=== PATIENT | male | born 1970 | race Caucasian/White ===

== ENCOUNTER 2019-09-18 07:40 | Day surgery (SDC) | payer OTHER, SELFPAY ==
[2019-09-17 07:41] VITALS: BMI 38.2
[2019-09-18] VITALS (13 sets, daily range): BP systolic 90–143; BP diastolic 64–94; PULSE 57–85; RESP 12–24; TEMP 36.4–36.8; O2SAT 93–98; BMI 38.2
[2019-09-18] MEDS: LACTATED RINGERS 1,000 ML 100 ML IV ×2 (08:18→10:36)
--- NOTE | 2019-09-18 08:30 | PM.PREOP ---
Pre-operative Note Interval Note History & Physical reviewed/Exam performed by Physician: Yes Changes to H&P: No
[2019-09-18] MEDS: CEFAZOLIN 2 GM/100 ML FROZ.PIGGY IV (08:50)
--- NOTE | 2019-09-18 09:20 | SUR.OPER ---
Supine on padded OR bed, head on pillow, safety belt at thigh, left arm and. Right arm secured on padded arm oard <90 degrees abduction. Legs uncrossed. Tape over blanket to secure lower legs.
--- NOTE | 2019-09-18 09:21 | SUR.OPER ---
pillow under knees
[2019-09-18] MEDS: BUPIVACAINE 0.25% (PF) VIAL 30 ML INJ (09:36)
[2019-09-18] MEDS: HYDROMORPHONE 2 MG INJ IV ×4 (11:20→11:35)
[2019-09-18] MEDS: fentaNYL 100 MCG/2 ML INJ IV ×2 (11:40→11:45)
[2019-09-18] MEDS: hydrOXYzine 50 MG/ML INJ 25 MG IM (11:41)
--- NOTE | 2019-09-18 13:15 | SUR.PHASEII ---
Addendum entered by Piter Georges R.N. 09/18/19 13:59: Pt dressed with only SBA done with her at her side. Pt was escorted via [facility] to ED entrance in stable condition. Addendum entered by Piter Georges R.N. 09/18/19 13:53: Pt readied for DC after continue use of IS. Maintained saturations between 91-96 on RA. Original Note: Pt held r/t having trouble maintaining saturations on room air. IS was provided, instruction on usage done by [facility]. Placed on 2L of and on continuous monitoring. DC pending until pt can maintain sats on room air.
--- NOTE | 2019-09-18 13:48 | PM.OP.1 ---
Operative Date/Time/Diagnoses Date of procedure: 09/18/19 Time of procedure: 13:49 Pre-op diagnosis: right inguinal hernia Post-op diagnosis: other (bilateral inguinal hernia) Procedure & Clinicians Procedure: Transabdominal preperitoneal repair of bilateral inguinal hernia with mesh Same procedure as scheduled: Yes Indications: 48-year-old female with right-sided symptomatic inguinal hernia presents for elective repair. Anesthesia Type: General Operative Notes Findings: Bilateral direct inguinal hernia defect. Estimated Blood Loss (mL): 15 Procedure in detail: The patient was brought to the operating room and placed supine on the table. Bilateral sequential compression devices were applied. General anesthesia was induced and they were intubated with an endotracheal tube. A tineo cath was placed in sterile fashion. They received 2 g ancef prior to skin incision. They were prepped and draped in sterile fashion. A time out was performed to ensure the correct patient, procedure and necessary equipment within the operating room. The skin was infiltrated with 0.25% bupivicaine. A 1 cm infra umbilical midline incision was made. The umbilical stalk was elevated the fascia sharply incised and the abdomen entered traumatically. A 10mm balloon port was placed and pneumoperitoneum was established at 15mm Hg. Insepction of the abdomen demonstrated no evidence of injury upon entry. Two 5 mm ports were then placed under direct visualization in the right and left lower quadrant lateral to the rectus muscle. A left and right direct hernias were observed. The right round ligament was identified. The peritoneum 4 cm superior to the deep inguinal ring between the medial umbilical ligament and the anterior superior iliac spine was incised. The peritoneal flap was retracted and the preperitoneal tissue was dissected off the flap beginning lateral to the inferior epigastric artery and towards the ASIS and to posterior limit of the psoas muscle to develop the lateral aspect of the pocket. Next the peritoneum medial to the inferior epigastric was mobilized towards the median umbilical ligament to develop the medial aspect of the pocket and the direct defect was reduced. The space of Retzius was fully dissected such that the Derick's ligmament and the pubic symphysis were visible. Next, the peritoneum was mobilized off the round ligament of the uterus and the round ligament was ultimately sharpy transected to allow the mesh to sit appropriately within the pocket. A medium Bard 3D Max mesh was then placed into the abdomen and positioned such that the myopectineal orifice was completely covered with good overlap on all sides. The mesh was anchored to the pubic tubercle and to Derick?s ligament. The peritoneal flap was then repositioned back to its original position and tacks were used to anchor it in position such that no bowel could herniate into the preperitoneal space. The area was examined for hemostasis. The left inguinal hernia was then repaired in the same fashion. The 5mm trocars were removed under direct visualization and pneumoperitoneum was deflated through the umbilical trocar, The fascia at the umbilicus was closed with 0-Vicryl in figure of 8 fashion, skin closed with 4-0 Monocyl followed by Dermabond. The sponge and instrument count at the end of the case was correct. The patient emerged from anesthsia was extubated and transferred to recovery in stable condition. Complications: none Post-operative Condition: stable Disposition: same day surgery
== END 2019-09-18 14:00 | disposition home or self-care (01) ==
PROVIDERS: PCP Family Medicine; Referring Provider Surgery; Visit Provider Surgery
PROC: 0YQ64ZZ Repair Left Inguinal Region, Percutaneous Endoscopic Approach (ICD-10-PCS; CPT 49650; principal; 2019-09-18 08:45)
DX: K40.20 Bilateral inguinal hernia, without obstruction or gangrene, not specified as recurrent (principal)
CPT/HCPCS: 49650; C1781; J0330; J0690; J1100; J1170; J1885; J2250; J2405; J2704; J3010; J3410

== ENCOUNTER 2020-04-09 13:36 | Emergency (ER) | payer OTHER, SELFPAY ==
[2020-04-09 13:39] VITALS: BP 175/84; PULSE 74; RESP 20; TEMP 36.7; O2SAT 95
--- NOTE | 2020-04-09 14:45 | ED.BACK ---
HPI - Back Pain/Injury <Frida Li PA-C - Last Filed: 04/09/20 21:22> General Chief Complaint: Back Pain/Injury Stated Complaint: right hip pain 02/14/ x4 days Time Seen by Provider: 04/09/20 14:41 Source: patient History of Present Illness HPI Narrative: 49-year-old woman with a history of sciatic back pain presents complaining of similar back pain since Tuesday that has become so severe she has had difficulty sleeping and it is disrupting her work. She has pain in her right low back more in her hip or SI joint that she says is radiating down the back of her leg and even to her calf causing some tingling in her calf. Her pain is at least a 7/10 She describes it as an intense aching and says she has been having spasming and twitching in her right leg. This feels very similar to when she had this happen previously this winter, at that time she was prescribed prednisone taper and this improved her symptoms they returned in a month and she was scheduled for an MRI but this did not happen because of COVID, after 2nd prednisone taper her symptoms resolved and had not returned until 4 days ago. She has now rescheduled her MRI and is going to be having that early next week to get some answers. She presents today hoping to get some relief for her spasms and discomfort. She denies loss of bowel or bladder function, fever, chills, headache, abdominal pain, dysuria, hematuria, chest pain, numbness of her hands or feet, saddle paresthesia or any other symptoms and has otherwise been in her normal state of health. Complaint: back pain Onset (ago): day(s) (4) Duration: constant Similar Symptoms Previously: Yes Location: sacrum (SI /joint/hip/low back right) Severity: severe Quality: aching and other (shooting down back of leg) Radiation: buttocks and right leg Severity scale (1-10): 8 Relieving factors: none Exacerbating factors: movement, sitting upright and walking Context: other (No trauma) Associated symptoms: denies other symptoms Treatments prior to arrival: cold therapy, NSAIDS, acetaminophen and other (Without relief) Related Data Home Medications Medication Instructions Recorded Confirmed escitalopram oxalate 10 mg tablet 10 mg PO DAILY 09/05/19 10/03/19 lisinopril 10 mg tablet 10 mg PO DAILY 09/05/19 10/03/19 ranitidine HCl 150 mg capsule 150 mg PO BEDTIME 09/05/19 10/03/19 Previous Rx's Medication Instructions Recorded acetaminophen [Tylenol] 650 mg PO QID PRN #60 cap 09/18/19 oxycodone 5 mg PO Q6H PRN #30 tab 09/18/19 baclofen 5 mg PO TID #20 tab 04/09/20 methylprednisolone [Medrol (Berto)] See Rx Instructions .ROUTE 04/09/20 .COMPLEX #21 each Allergies Allergy/AdvReac Type Severity Reaction Status Date / Time No Known Drug Allergies Allergy Verified 10/03/19 10:49 Review of Systems <Frida Li PA-C - Last Filed: 04/09/20 21:22> Review of Systems Narrative: GENERAL: Denies chills, fatigue, malaise, fever, sweats. HEENT: Denies sinus pain, ear pain, sore throat, difficulty swallowing, dizziness. RESPIRATORY: Denies dyspnea, cough, wheezing, hemoptysis, sputum. CARDIOVASCULAR: Denies chest pain, palpitations, orthopnea, edema, GASTROINTESTINAL: Denies nausea, vomiting, abdominal pain, diarrhea, constipation, melena. : Denies dysuria, frequency, incontinence, hematuria, urinary retention. MUSCULOSKELETAL: Positive for pain in her right low back SI joint and hip radiating down the back of her right leg denies weakness, joint pain, or bony pain SKIN: Denies rash, skin lesions, or other NEUROLOGIC: Denies weakness, headache, numbness, change in speech, confusion, seizures, incoordination. PSYCHIATRIC: No concerning psychosocial issues. 12 point review of systems is negative except for those stated above Patient History <Frida Li PA-C - Last Filed: 04/09/20 21:22> Medical History Anxiety (Acute) HTN (hypertension) (Acute) Surgical History Hx of unilateral salpingectomy (Acute) Family History Grandmother Cancer Social History marital status: household members: spouse Smoking Status: Current every day smoker alcohol intake: never substance use type: does not use Smoking Status: Current every day smoker Substance Use Type: does not use Exam <Frida Li PA-C - Last Filed: 04/09/20 21:22> Narrative Exam Narrative: GENERAL: 49 year old patient appears stated age. Well-nourished, obese patient, in moderate distress. HEAD: Atraumatic. Normocephalic. EYES: Pupils equal round and reactive. Extraocular motions intact. No scleral icterus. No injection or drainage. ENT: Nose without bleeding, purulent drainage. Throat without erythema, tonsillar hypertrophy or exudate. Airway patent. NECK: Trachea midline. Non tender CARDIOVASCULAR: Regular rate and rhythm without murmurs, gallops, or rubs. RESPIRATORY: Clear to auscultation. Breath sounds equal bilaterally. No wheezes, rales, or rhonchi. GASTROINTESTINAL: Abdomen soft, non-tender, nondistended. EXTREMITIES: There is tenderness medial to the ischial tuberosity and superior to it, there is tenderness of the SI joint, there is pain with walking, pain with range of motion, strength is intact 5/5 bilaterally, sensation is intact in the right lower extremity, pulses are strong and equal bilaterally. No edema or joint tenderness. BACK: See extremities. Nontender without deformity or crepitance. No flank tenderness. NEURO: AOx3. SKIN: No rash or erythema of visible areas Initial Vital Signs Initial Vital Signs: Vital Signs Temperature 98.0 F 04/09/20 13:39 Pulse Rate 74 04/09/20 13:39 Respiratory Rate 04/09/20 13:39 Blood Pressure 175/84 H 04/09/20 13:39 Pulse Oximetry 95 04/09/20 13:39 <Caitlyn Bloom DO - Last Filed: 04/11/20 07:12> Initial Vital Signs Initial Vital Signs: Vital Signs Temperature 98.0 F 04/09/20 13:39 Pulse Rate 74 04/09/20 13:39 Respiratory Rate 04/09/20 13:39 Blood Pressure 175/84 H 04/09/20 13:39 Pulse Oximetry 95 04/09/20 13:39 Scores <Frida Li PA-C - Last Filed: 04/09/20 21:22> GCS [place] coma scale eye opening: Spontaneous [place] coma scale verbal response: Orientated Zoe coma scale motor response: Obey commands Zoe coma scale total score: 15 Course <Frida Li PA-C - Last Filed: 04/09/20 21:22> Vital Signs Vital signs: Vital Signs - 8 hr 04/09/20 13:39 04/09/20 16:31 Temperature 98.0 F Pulse Rate 74 72 Respiratory Rate 20 17 Blood Pressure 175/84 H 154/76 H Pulse Oximetry 95 99 <Caitlyn Bloom DO - Last Filed: 04/11/20 07:12> Vital Signs Vital signs: Vital Signs - 8 hr 04/09/20 13:39 04/09/20 16:31 Temperature 98.0 F Pulse Rate 74 72 Respiratory Rate 20 17 Blood Pressure 175/84 H 154/76 H Pulse Oximetry 95 99 MDM - Back Pain/Injury <Frida Li PA-C - Last Filed: 04/09/20 21:22> Differential Diagnosis Differential diagnosis: Likely lumbar radiculopathy, sciatica, strain of lumbar region, discitis and other (UTI) Medical Records Attestation: I reviewed the patient's medical records. [facility] Narrative Medical decision making narrative: Uncomfortable appearing 49-year-old presents with right low back and hip pain with sciatica. She has had very similar symptoms previously, she has an MRI scheduled for next week, this is the 1st time she has had these symptoms in 7 months. Based on exam and history I have very low suspicion that there is an acute abdominal process, infectious process, urologic process involved. Imaging is not obtained as she is scheduled to have an MRI next week and I do not feel that x-rays would likely reveal new information that would change my plan or diagnosis, she had no trauma recently. Her exam and history are consistent with sciatica, she has historically received significant relief from her symptoms with prednisone, she is also having muscle spasms of her right leg in the thigh area, and I prescribed he Medrol Dosepak as well as baclofen for muscle spasms. She has been working from home and has had severe difficulty sleeping and completing any for work last few days due to her pain. She declines a work note, discussed plan for follow up, emergency return precautions provided, all questions answered. Discharge Plan Departure Patient Disposition: Home Clinical Impression: Muscle spasm Lumbago with sciatica, right side Qualifiers: Chronicity: acute Back pain laterality: right Qualified Code(s): M54.41 - Lumbago with sciatica, right side Discharge Date/Time: 04/09/20 16:32 Instructions: DI for Back Pain With Sciatica, DI for Back Spasm Activity Restrictions/Additional Instructions: Thank you for letting us to be part of the care in the emergency department today. I do think that you are dealing with sciatica, or compression of your sciatic nerve causing the pain radiating down her leg and you likely have some compression of this nerve causing the pain in her hip and low back. I have provided you with a a steroid taper and a medicine to help with muscle spasms this latter which he should only take if needed. Please follow-up with your MRI and see her primary care provider for further evaluation. There is no evidence of an emergent or life threatening illness at this time, but follow up with your doctor in 1-2 days is recommended nonetheless to continue to rule out serious underlying causes of your symptoms. Please call the office for an appointment. Please return to the Emergency Department for any worsening or persistent symptoms. Please take medications as directed. Prescriptions: New methylprednisolone [Medrol (Berto)] 4 mg tablets,dose pack See Rx Instructions .ROUTE .COMPLEX Qty: 21 RF: 0 baclofen 5 mg tablet 5 mg PO TID Qty: 20 RF: 0 No Action lisinopril 10 mg tablet 10 mg PO DAILY RF: 0 escitalopram oxalate [Lexapro] 10 mg tablet 10 mg PO DAILY RF: 0 ranitidine HCl 150 mg capsule 150 mg PO BEDTIME RF: 0 oxycodone 5 mg tablet 5 mg PO Q6H PRN (Reason: pain) Qty: 30 RF: 0 acetaminophen [Tylenol] 325 mg capsule 650 mg PO QID PRN (Reason: pain) Qty: 60 RF: 0 Referrals: Ana Hunt MD [Primary Care Provider] - <Caitlyn Bloom DO - Last Filed: 04/11/20 07:12> [facility] ED Attending Brendanature Attestation: I was immediately available in the department for consultation. Documentation has been reviewed. I agree with assessment and plan.
[2020-04-09 16:31] VITALS: BP 154/76; PULSE 72; RESP 17; O2SAT 99
== END 2020-04-09 16:32 | disposition home or self-care (01) ==
PROVIDERS: Emergency Provider Student in an Organized Health Care Education/Training Program; PCP Family Medicine
DX: M62.830 Muscle spasm of back (principal); M54.41 Lumbago with sciatica, right side
CPT/HCPCS: 99281

== ENCOUNTER 2022-12-31 18:17 | Emergency (ER) | payer OTHER, SELFPAY ==
[2022-12-31] VITALS (10 sets, daily range): BP systolic 154–168; BP diastolic 87–92; PULSE 72–95; RESP 15; TEMP 36.6; O2SAT 93–96; BMI 39.4
--- NOTE | 2022-12-31 18:35 | ED.NEUROSD ---
HPI - Neuro Symptoms/Deficit General Chief Complaint: Neuro Symptoms/Deficit Stated Complaint: NUMBNESS BOTH LEGS Time Seen by Provider: 12/31/22 18:25 Source: patient Mode of arrival: Ambulatory History of Present Illness HPI Narrative: Patient is a 52-year-old female who was sent to the emergency department by her GI doctor for evaluation of numbness that has been going on her legs and also in her hands. She states that for at least a year if not longer she has had numbness in her left legs and then over the past several months it has progressively worsened to now include her right leg and also her hands. She has seen her primary doctor about this. There is a referral for her to see Neurology but she states she is not heard back from them up to this point. That referral was placed within the past 2 weeks. She was also started on steroids by her primary doctor to see if this would help the numbness that she is been having. She was scheduled to get a colonoscopy next Tuesday. She contacted her GI doctor to let them know about the symptoms she was having and she was told by the nursing staff at the GI doctor's office that she should come to the emergency department and not wait until she is seen by the neurologist. She is no new symptoms today. On Anticoagulants: No Related Data Home Medications Medication Instructions Recorded Confirmed escitalopram oxalate 10 mg tablet 10 mg PO DAILY 09/05/19 10/03/19 (Lexapro) lisinopril 10 mg tablet 10 mg PO DAILY 09/05/19 10/03/19 ranitidine HCl 150 mg capsule 150 mg PO BEDTIME 09/05/19 10/03/19 Previous Rx's Medication Instructions Recorded acetaminophen 325 mg capsule 650 mg PO QID PRN pain #60 caps 09/18/19 (Tylenol) oxycodone 5 mg tablet 5 mg PO Q6H PRN pain #30 tabs 09/18/19 baclofen 5 mg tablet 5 mg PO TID muscle spasms #20 tabs 04/09/20 methylprednisolone 4 mg tablets in See Rx Instructions PO .COMPLEX 04/09/20 a dose pack (Medrol (Berto)) #21 ea Allergies Allergy/AdvReac Type Severity Reaction Status Date / Time No Known Drug Allergies Allergy Verified 12/31/22 18:25 Review of Systems Review of Systems ROS Unobtainable: All systems reviewed & are unremarkable except as noted in HPI and below Hematologic/Lymphatic On Anticoagulants: No Patient History Medical History Anxiety HTN (hypertension) Surgical History Hx of unilateral salpingectomy Family History Grandmother Cancer Social History marital status: household members: spouse Smoking Status: Current every day smoker alcohol intake: never substance use type: does not use Smoking Status: Current every day smoker alcohol intake frequency: holidays/special occasions only Substance Use Type: does not use Exam Initial Vital Signs Initial Vital Signs: Vital Signs Temperature 97.9 F 12/31/22 18:18 Pulse Rate 87 12/31/22 18:18 Respiratory Rate 15 12/31/22 18:18 Blood Pressure 168/90 H 12/31/22 18:18 Pulse Oximetry 95 12/31/22 18:18 Oxygen Delivery Method Room Air 12/31/22 18:18 HENMT Head: normal to inspection Resp Effort & Inspection: normal respiratory effort Cardio Rate: regular rate Neuro General: patient alert, patient awake, patient oriented x3 and moves all extremities Cognition: normal cognition Speech: speech normal Gait: normal gait Extrem Other: No gross deformities Course Orders Ordered: ED Orders 12/31/22 18:40 Basic Metabolic Panel Stat Complete Blood Count AUTO DIFF Stat Magnesium Stat Phosphorous Stat Thyroid Stimulating Hormone Stat Vital Signs Vital signs: Vital Signs - 8 hr 12/31/22 19:30 12/31/22 19:31 12/31/22 19:31 Pulse Rate 72 74 Blood Pressure 154/87 H Pulse Oximetry 93 94 Oxygen Delivery Method Room Air 12/31/22 20:00 12/31/22 20:01 12/31/22 20:01 Pulse Rate 75 73 Blood Pressure 159/92 H Pulse Oximetry 93 96 Oxygen Delivery Method MDM - Neuro Symptoms/Deficit Lab Data 12/31/22 18:40 12/31/22 18:40 Labs: Lab Results 12/31/22 12/31/22 12/31/22 Range/Units 18:40 18:40 18:40 WBC 6.9 (4.5-11.0) X10^3/uL RBC 5.04 (4.0-5.2) X10^6/uL Hgb 15.1 (12.0-16.0) g/dL Hct 45.0 (36-46) % MCV 89.3 (80-100) fL MCH 29.9 (26-34) PG MCHC 33.5 (30-36) % RDW 13.1 (11.6-14.8) % Plt Count 187 (150-400) X10^3/uL Neut % (Auto) 63.4 (50-75) % Lymph % (Auto) 26.6 (25-40) % [place] % (Auto) 7.7 (3-14) % Eos % (Auto) 1.3 L (2-4) % Baso % (Auto) 1.0 (0-2) % Neut # (Auto) 4400 (8680-6934) /uL Lymph # (Auto) 1800 (5407-4492) /uL [place] # (Auto) 500 (0-900) /uL Eos # (Auto) 100 (0-450) /uL Baso # (Auto) 100 (0-100) /uL Sodium 141 (137-145) mmol/L Potassium 3.9 (3.4-5.1) mmol/L Chloride 107 (98-107) mmol/L Carbon Dioxide 27 (22-32) mmol/L BUN 13 (7-17) mg/dL Creatinine 0.93 (0.52-1.04) mg/dL Estimated GFR > 60 (>60) mL/min BUN/Creatinine Ratio 14.0 (6-22) Glucose 145 H (70-100) mg/dL Calcium 8.6 (8.4-10.2) mg/dL Phosphorus 4.1 (2.5-4.5) mg/dL Magnesium 2.2 (1.6-2.3) mg/dL TSH 1.87 (0.47-4.68) uIU/mL MDM Narrative Medical decision making narrative: Patient's labs today are unremarkable. She is no new symptoms today. Her symptoms have actually been going on for at least a year if not longer although she does admit that for the past several months they have progressively been worsening. She is ambulatory. She is on steroids. She has seen her primary doctor. No further workup is required in the emergency department given the length of time she is been having the symptoms. I absolutely agree that she needs to be seen by Neurology. We do not have Neurology available at this time here at this hospital and I do not feel that this needs to happen emergently. Will discharge patient home with return precautions and instructions to follow-up with neurology and recommendations to contact the neurologist the beginning of next week for this appointment. Discharge Plan Departure Patient Disposition: Home Clinical Impression: Numbness and tingling Instructions: DI for Numbness/Tingling Activity Restrictions/Additional Instructions: Recommend that you continue to take all of your medications as directed. I also recommend that on Tuesday you contact the Neurology office to see where the referral process is. Return to the emergency department for new symptoms. Prescriptions: No Action lisinopril 10 mg tablet 10 mg PO DAILY escitalopram oxalate [Lexapro] 10 mg tablet 10 mg PO DAILY ranitidine HCl 150 mg capsule 150 mg PO BEDTIME oxycodone 5 mg tablet 5 mg PO Q6H PRN (Reason: pain) Qty: 30 0RF acetaminophen [Tylenol] 325 mg capsule 650 mg PO QID PRN (Reason: pain) Qty: 60 0RF methylprednisolone [Medrol (Berto)] 4 mg tablets,dose pack See Rx Instructions .ROUTE .COMPLEX Qty: 21 0RF Rx Instructions: orally per package directions baclofen 5 mg tablet 5 mg PO TID Qty: 20 0RF Referrals: Ana Hunt MD [Primary Care Provider] - Stand Alone Forms: Patient Portal/API
[2022-12-31 19:00] LABS: Add Manual Diff / Slide Review NO; Basophils Absolute Auto 100 /uL (0-100); Eosinophils Absolute Auto 100 /uL (0-450); Eosinophils Percent Auto 1.3 % (2-4); Hemoglobin 15.1 g/dL (12.0-16.0); Lymphocytes Absolute Auto 1800 /uL (1100-4500); Lymphocytes Percent Auto 26.6 % (25-40); Mean Corpuscular HGB Conc 33.5 % (30-36); Mean Corpuscular Hemoglobin 29.9 PG (26-34); Mean Corpuscular Volume 89.3 fL (80-100); Monocytes Absolute Auto 500 /uL (0-900); Monocytes Percent Auto 7.7 % (3-14); Neutrophils Absolute Auto 4400 /uL (1500-7000); Neutrophils Percent Auto 63.4 % (50-75); Platelet Count 187 X10^3/uL (150-400); Red Blood Cell Count 5.04 X10^6/uL (4.0-5.2); Red Cell Distribution Width 13.1 % (11.6-14.8); White Blood Cell Count 6.9 X10^3/uL (4.5-11.0)
[2022-12-31 19:08] LABS: Blood Urea Nitrogen 13 mg/dL (7-17); Calcium 8.6 mg/dL (8.4-10.2); Carbon Dioxide 27 mmol/L (22-32); Chloride 107 mmol/L (98-107); Estimated Glomerular Filt Rate > 60 mL/min (>60); Glucose 145 mg/dL (70-100); HEMOLYSIS < 15 (0-50); Magnesium 2.2 mg/dL (1.6-2.3); Phosphorous 4.1 mg/dL (2.5-4.5); Potassium 3.9 mmol/L (3.4-5.1); Sodium 141 mmol/L (137-145)
[2022-12-31 19:56] LABS: Thyroid Stimulating Hormone 1.87 uIU/mL (0.47-4.68)
== END 2022-12-31 20:26 | disposition home or self-care (01) ==
PROVIDERS: Emergency Provider Emergency Medicine; PCP Family Medicine
DX: R20.0 Anesthesia of skin (principal)
CPT/HCPCS: 80048; 83735; 84100; 84443; 85025; 99281; 99283

== ENCOUNTER → 2023-03-02 10:39 | Outpatient (CLI) | payer OTHER, SELFPAY ==
[2023-03-02 12:03] LABS: Add Manual Diff / Slide Review NO; Basophils Absolute Auto 0 /uL (0-100); Basophils Percent Auto 0.7 % (0-2); Eosinophils Absolute Auto 100 /uL (0-450); Eosinophils Percent Auto 1.2 % (2-4); Hematocrit 47.8 % (36-46); Hemoglobin 15.9 g/dL (12.0-16.0); Lymphocytes Absolute Auto 1600 /uL (1100-4500); Lymphocytes Percent Auto 28.3 % (25-40); Mean Corpuscular HGB Conc 33.3 % (30-36); Mean Corpuscular Hemoglobin 29.8 PG (26-34); Mean Corpuscular Volume 89.5 fL (80-100); Monocytes Absolute Auto 300 /uL (0-900); Monocytes Percent Auto 5.8 % (3-14); Neutrophils Absolute Auto 3700 /uL (1500-7000); Platelet Count 183 X10^3/uL (150-400); Red Blood Cell Count 5.34 X10^6/uL (4.0-5.2); Red Cell Distribution Width 12.9 % (11.6-14.8); White Blood Cell Count 5.7 X10^3/uL (4.5-11.0)
[2023-03-02 12:19] LABS: BUN Creatinine Ratio 14.7 (6-22); Blood Urea Nitrogen 11 mg/dL (7-17); Calcium 8.9 mg/dL (8.4-10.2); Carbon Dioxide 30 mmol/L (22-32); Chloride 104 mmol/L (98-107); Estimated Glomerular Filt Rate > 60 mL/min (>60); Glucose 104 mg/dL (70-100); HEMOLYSIS < 15 (0-50); Potassium 4.2 mmol/L (3.4-5.1); Sodium 141 mmol/L (137-145)
== END ==
PROVIDERS: PCP Family Medicine; Referring Provider Orthopaedic Surgery Orthopaedic Surgery of the Spine; Visit Provider Orthopaedic Surgery Orthopaedic Surgery of the Spine
DX: Z01.812 Encounter for preprocedural laboratory examination (principal)
CPT/HCPCS: 36415; 80048; 85025

== ENCOUNTER 2023-03-07 07:18 | Day surgery (SDC) | payer OTHER, SELFPAY ==
[2023-03-03 14:26] VITALS: BMI 37.8
[2023-03-07] VITALS (10 sets, daily range): BP systolic 109–140; BP diastolic 64–83; PULSE 77–128; RESP 12–19; TEMP 36.1–36.8; O2SAT 60–99; BMI 37.8
[2023-03-07] MEDS: LACTATED RINGERS 1,000 ML 42 ML IV ×2 (07:40→09:08)
--- NOTE | 2023-03-07 08:59 | PM.PREOP ---
Pre-operative Note COVID-19 Criteria for continued procedure: Expected advancement of disease process, Possibility delay results in more complex future surgery or treatment, Increased loss of function, Continuing or worsening of significant or severe pain, Deterioration of the patient's condition or overall health and Delay expected to result in less-positive ultimate med/surg outcome Interval Note History & Physical reviewed/Exam performed by Physician: Yes Changes to H&P: No
[2023-03-07] MEDS: CEFAZOLIN 2 GM/100 ML PREMIX 100 ML IV (09:14)
--- NOTE | 2023-03-07 09:59 | SUR.OPER ---
Supine on padded OR bed, head on pillow, arms padded and tucked at sides, legs uncrossed, safety belt at thigh, tape over blanket over lower legs .
[2023-03-07] MEDS: BUPIVACAINE 0.25% (PF) 30 ML, EPINEPHrine 0.15 MG INJ (10:12)
[2023-03-07] MEDS: ACETAMINOPHEN IV 1,000 MG/100 ML VIAL 400 MG IV (10:30)
--- NOTE | 2023-03-07 11:15 | DI.RAD.S_ITS ---
PROCEDURE: XR CERVICAL SPINE 2V OR 3V INDICATIONS: C 5-6 ACDF TECHNIQUE: 2 view(s) of the cervical spine were acquired. COMPARISON: [facility] Outside Film, CR, XR CERVICAL SPINE WITH FLEXION EXTENSION, 02/22/2023, 11:58. FINDINGS: Bones: Limited views of the cervical spine demonstrate C5-C6 ACDF. The hardware appears intact. Endotracheal tube in place. IMPRESSION: Limited views of the cervical spine demonstrate C5-C6 ACDF. Dictated by: Dong Brian M.D. on 03/07/2023 at 11:27 Approved by: Dong Brian M.D. on 03/07/2023 at 11:28
--- NOTE | 2023-03-07 11:18 | PM.OP.1 ---
Operative Date/Time/Diagnoses Date of procedure: 03/07/23 Time of procedure: 10:00 Pre-op diagnosis: 1. C5-6 spinal stenosis 2. C5-6 spondylosis with myelopathy Post-op diagnosis: same Procedure & Clinicians Procedure: 1. C5-6 anterior cervical diskectomy and fusion 2. C5-6 anterior interbody cage placement 3. C5-6 anterior instrumentation with plate and screw placement in C5 and C6 vertebrae 4. Utilization of microsurgical technique and operating microscope Same procedure as scheduled: Yes Indications: Patient has been having chronic neck pain and worsening cervical radiculopathy and significant myelopathy. The patient has been having issues with bilateral upper and lower extremity pain weakness numbness and poor balance. 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 Patient failed multiple conservative management with worsening pain weakness and numbness in her upper extremity. Patient has been having difficulty performing activity of daily living. After discussing risks benefits of treatment options, patient elected proceed with surgery. Surgeon: Allison White Tile Machine Operator: Dali Castillo Click Yes if Unassisted: No Anesthesia Type: General Operative Notes Closure Type: primary Specimen(s): none sent Applied: catheter Estimated Blood Loss (mL): 5 Blood products transfused: none Procedure in detail: Patient was seen in the preoperative area. Risks and benefits of the surgery was discussed with the patient. Informed consent was obtained from the patient and placed in the chart. Surgical site was marked. Patient was taken to the operative room. General anesthesia was administered. Prophylactic antibiotic was given to the patient less than 30 min before the incision was made. Patient was placed into a supine position on a radiolucent table. Patient's shoulders were taped down to allow proper C-arm imaging. Anterior cervical area was prepped and draped in a sterile fashion. Time-out was performed at this time. Using lateral C-arm imaging, the level between C5 and C6 was identified and marked on patient's neck. A oblique incision from midline towards medial border of sternocleidomastoid muscle was made. The platysma muscle was incised in line with skin incision. Metzenbaum scissor was used to develop the plane between the medial border of sternocleidomastoid d and the strap muscles medially. The carotid sheath and its contents were identified and protected behind the hand-held retractor during the entire case. The plane between the carotid sheath and strap muscles was developed with Metzenbaum scissors. Dissection was made down to the level of the anterior cervical fascia. Longus colli muscle was incised on the anterior aspect of vertebral bodies bilaterally from C5-C6. Spinal needle was placed into the C5-6 disc space and confirmed with lateral C-arm imaging. Using microsurgical technique and operative microscope, anterior cervical diskectomy was performed at C5-6 level. This was done by removing the disc material, removing the anterior and posterior osteophytes posterior longitudinal ligaments along with performing bilateral foraminotomies at the C5-6 levels. Patient was found to have severe foraminal stenosis. Patient's stenosis was fully decompressed after decompression was completed. After the diskectomy was completed, an anterior interbody cage was obtained. The cage was packed with globus via cell bone grafting material. One cage each along with the bone grafting material was then packed into the interbody space at C5-6 along with an anterior cervical plate. The cervical plate was stabilized to the C5-C6 vertebrae using screws. After confirming placement of the hardware with AP and lateral C-arm imaging, the screws were locked into the plate using the locking mechanism and torque limiting screwdriver. After the hardware was placed and confirmed with AP and lateral C-arm imaging, the wound was irrigated with sterile normal saline. The platysma muscle and the subcutaneous tissue was closed with 2-0 Vicryl. The skin was closed with 4-0 Monocryl and Steri-Strips. Patient tolerated the procedure well. Patient was transferred recovery room in stable condition. There were no complications. Complications: none Post-operative Condition: stable Disposition: PACU Plan for aftercare: Admit to inpatient hospital
[2023-03-07] MEDS: OXYCODONE IR 5 MG TABLET PO (13:09)
== END 2023-03-07 13:45 | disposition home or self-care (01) ==
PROVIDERS: PCP Family Medicine; Referring Provider Orthopaedic Surgery Orthopaedic Surgery of the Spine; Visit Provider Orthopaedic Surgery Orthopaedic Surgery of the Spine
PROC: (CPT 22551; principal; 2023-03-07 09:15)
DX: M48.02 Spinal stenosis, cervical region (principal); M47.12 Other spondylosis with myelopathy, cervical region
CPT/HCPCS: 22551; 22853; 72040; 76000; C1713; J0131; J0171; J0330; J0690; J1100; J1170; J2405; J2704